=== PATIENT | female | born 1955 | race Caucasian/White ===

== ENCOUNTER 2018-03-18 11:00 | Inpatient (IN) | payer OTHER ==
[~2018-03-18] VITALS: Ht 152.4 cm; Wt 72.6 kg
[2018-03-18] MEDS ORDERED: COZAAR50 MG PO (13:59)
[2018-03-18] MEDS ORDERED: AMBIEN5 MG PO (13:59)
[2018-03-18] MEDS ORDERED: CALCIUM500 M2 PO (14:01)
[2018-03-18] MEDS ORDERED: BONIVA150 MG PO (14:01)
[2018-04-08] MEDS ORDERED: GABAPENTIN800 MG PO (12:23)
[2018-04-08] MEDS ORDERED: DOCUSATE SODIU100 MG PO (12:23)
[2018-04-08] MEDS ORDERED: BACTRIM DS TAB1 EACH PO (12:25)
[2018-04-08] MEDS ORDERED: CLONAZEPAM1 MG PO (12:26)
[2018-04-08] MEDS ORDERED: PERCOCET 5-3251 EACH PO (12:26)
== END 2018-04-08 19:08 | DRG 455 ==
LOC: SURH 04-06 11:00 → SURG 04-07 06:08 → O/R 04-07 06:08 → SURG 04-07 15:03 → O/R 04-07 16:20 → SURG 04-07 16:27
PROVIDERS: ADMIT Orthopaedic Surgery Orthopaedic Surgery of the Spine
PROC: 0SG0071 Fusion of Lumbar Vertebral Joint with Autologous Tissue Substitute, Posterior Approach, Posterior Column, Open Approach (ICD-10-PCS; 2018-04-07)
PROC: 0SG00AJ Fusion of Lumbar Vertebral Joint with Interbody Fusion Device, Posterior Approach, Anterior Column, Open Approach (ICD-10-PCS; 2018-04-07)
PROC: 0ST20ZZ Resection of Lumbar Vertebral Disc, Open Approach (ICD-10-PCS; 2018-04-07)
PROC: 07DS3ZZ Extraction of Vertebral Bone Marrow, Percutaneous Approach (ICD-10-PCS; 2018-04-07)
PROC: 0SG00A0 Fusion of Lumbar Vertebral Joint with Interbody Fusion Device, Anterior Approach, Anterior Column, Open Approach (ICD-10-PCS; principal; 2018-04-07 16:45)
DX: M47.26 Other spondylosis with radiculopathy, lumbar region (principal); M41.86 Other forms of scoliosis, lumbar region; M51.16 Intervertebral disc disorders with radiculopathy, lumbar region; I10 Essential (primary) hypertension; Z88.0 Allergy status to penicillin